=== PATIENT | female | born 1970 | race Caucasian/White ===

== ENCOUNTER 2018-06-14 09:01 | Day surgery (SDC) | payer MEDICAID ==
[~2018-06-14] VITALS: Ht 147.3 cm; Wt 55.8 kg
[2018-06-14] MEDS ORDERED: ATOR20TA PO (09:50)
[2018-06-14] MEDS ORDERED: fentaNYL 0.05 MG/ML VIAL ONE (10:24)
[2018-06-14] MEDS ORDERED: MIDAZOLAM 2 MG/2 ML VIAL ONE (10:25)
[2018-06-14] MEDS ORDERED: LIDOCAINE 2% 100 MG/5 ML UJET TP ONE (10:25)
[2018-06-14] MEDS ORDERED: MIDAZOLAM 2 MG/2 ML VIAL IVP ONE (11:25)
[2018-06-14] MEDS ORDERED: fentaNYL 0.05 MG/ML VIAL IVP ONE (11:25)
[2018-06-14] MEDS ORDERED: fentaNYL 0.05 MG/ML VIAL IVP SCH (11:36)
== END 2018-06-14 11:40 | disposition home or self-care (01) ==
LOC: MDS 09:01 → MMU 09:01 → MDS 11:40
PROVIDERS: ATTEND Internal Medicine Gastroenterology
DX: K59.00 Constipation, unspecified (principal); R19.5 Other fecal abnormalities; E78.00 Pure hypercholesterolemia, unspecified; E66.3 Overweight; Z68.25 Body mass index [BMI] 25.0-25.9, adult; Z98.890 Other specified postprocedural states; Z79.899 Other long term (current) drug therapy
CPT/HCPCS: 45378; 81025; J2250; J3010